=== PATIENT | male | born 1955 | race Caucasian/White ===

== ENCOUNTER 2024-04-13 12:57 | Observation (INO) | payer OTHER ==
[2024-04-13] VITALS (10 sets, daily range): BP systolic 115–136; BP diastolic 71–85
[~2024-04-13] VITALS: Ht 170.2 cm; Wt 104.2 kg
[2024-04-13] MEDS ORDERED: NS 1,000 ML IV SCH (14:00)
[2024-04-13 14:15] LABS: BASOPHILS ABSOLUTE AUTO 0.03 K/mm3 (0.00-0.23); BASOPHILS PERCENT AUTO 0 % (0-2); EOSINOPHILS PERCENT AUTO 0 % (0-6); Hematocrit 42.4 % (37.0-53.0); Hemoglobin 14.5 g/dL (13.5-17.5); IMMATURE GRAN ABSOLUTE AUTO 0.11 K/mm3 (0.00-0.10); IMMATURE GRAN PERCENT AUTO 1 % (0-1); LYMPHOCYTES ABSOLUTE AUTO 0.48 K/mm3 (0.84-5.20); LYMPHOCYTES PERCENT AUTO 3 % (21-46); MONOCYTES ABSOLUTE AUTO 1.43 K/mm3 (0.16-1.47); MONOCYTES PERCENT AUTO 8 % (4-13); Mean Corpuscular HGB 31.4 pg (26.0-34.0); Mean Corpuscular HGB Conc 34.2 g/dL (31.5-36.5); Mean Corpuscular Volume 92 fL (80-100); Mean Platelet Volume 9.7 fL (9.1-12.4); NEUTROPHILS ABSOLUTE AUTO 16.04 K/mm3 (1.96-9.15); NEUTROPHILS PERCENT AUTO 89 % (41-73); Platelet Count 198 K/mm3 (150-400); RDW Coefficient Variation 12.8 % (11.7-14.2); RDW Standard Deviation 43.2 fL (35.1-46.3); Red Blood Cell Count 4.62 M/mm3 (4.30-5.90); White Blood Cell Count 18.09 K/mm3 (4.00-11.30)
[2024-04-13 15:00] LABS: Albumin, Blood 3.3 g/dL (3.4-5.0); Albumin/Globulin Ratio 0.9 (0.8-1.8); Bilirubin, Total 1.6 mg/dL (0.1-1.0); Bun/Creatinine Ratio 9.2 (12.0-20.0); Calcium, Blood 9.2 mg/dL (8.5-10.1); Creatinine, Blood 0.98 mg/dL (0.60-1.20); Globulin, Blood 3.7 g/dL (2.2-4.0); Potassium, Blood 4.1 mmol/L (3.5-5.5)
[2024-04-13] MEDS ORDERED: Indocyanine Green 25 MG Vial IV SCH (15:10)
[2024-04-13] MEDS ORDERED: Lactated Ringer's 1,000 ML IV SCH (15:10)
[2024-04-13] MEDS ORDERED: FLU VACC TS2024-25(6MOS UP)/PF 45 MCG/0.5 ML SYRINGE IM PRN (15:45)
[2024-04-13] MEDS ORDERED: propofoL 20 ML IV ONE (15:59)
[2024-04-13] MEDS ORDERED: Sugammadex Sodium 200 MG/2ML SDV (100 MG/ML) ONE (15:59)
[2024-04-13] MEDS ORDERED: FentaNYL Citrate 50 MCG/ML 2 ML Injection ONE (15:59)
[2024-04-13] MEDS ORDERED: Rocuronium Bromide 10 MG/ML 5ML Injection IV ONE (16:00)
[2024-04-13] MEDS ORDERED: Lidocaine HCl 2% 20 ML MDV ONE (16:00)
[2024-04-13] MEDS ORDERED: Piperacillin/Tazobactam Sod 3.375 GM in NS 100 ML IV SCH (16:00)
[2024-04-13] MEDS ORDERED: Ondansetron HCl 2 MG / ML 2ML Vial ONE (16:00)
[2024-04-13] MEDS ORDERED: Dexamethasone Sod Phos 10 MG/ML 1ML VIAL ONE (16:00)
[2024-04-13] MEDS ORDERED: Bupivacaine 0.5% HCl 5 MG/ML 30MLVIAL ONE (17:08)
--- NOTE | 2024-04-13 17:26 | NUR ---
PT TO UNIT VIA GURN. ABLE TO WALK TO RESTROOM WITH STANDBY ASSIST. History, Chart, Medications and Allergies reviewed before start of procedure. Pre-Op teaching done. Pt verbalizes understanding. Patient confirms NPO status and agrees with scheduled surgery.
[2024-04-13] MEDS ORDERED: HYDROmorphone HCl/Pf 1MG SYR IV PRN (22:05)
[2024-04-13] MEDS ORDERED: Acetaminophen 325 MG TABLET PO PRN (22:05)
[2024-04-13] MEDS ORDERED: OxyCODONE HCL 5 MG TAB PO PRN (22:05)
[2024-04-13] MEDS ORDERED: Ondansetron HCl 2 MG / ML 2ML Vial IV PRN (22:10)
--- NOTE | 2024-04-13 23:19 | NUR ---
ARRIVAL TO UNIT PT ARRIVED TO RM 210 ON GURNEY FROM PACU. PT TRANSFERRED OVER TO BED WITH SLIDING SHEET. PT ON 3L NC SATTING ABOVE 92%, RR EVEN AND UNLABORED. PT ABLE TO RESPOND TO QUESTIONS APPROPRIATLEY. ABLE TO WIGGLE TOES AND DENIES N/T. PT HAS X4 LAP SITES TO ABD, CLOSED WITH WG, C/D/I. VSS. CALL LIGHT GIVEN TO PT AND EDUCATED ON HOW TO USE IT. NO OTHER CONCERNS AT THIS TIME.
[2024-04-14 00:04] VITALS: BP 126/78
[2024-04-14 01:25] VITALS: BP 127/83
--- NOTE | 2024-04-14 04:28 | NUR ---
SHIFT SUMMARY PDO 1 LAP MIGUEL PT RESTED T/O SHIFT. DENIES ANY PAIN. TOLERATING REGUALR DIET. PT HAS VOIDED, BUT HAS NOT BEEN OOB. X4 LAP SITES CLOSED WITH WG ARE C/D/I. VSS. PT REMAINS ON 3L NC, CAN ATTEMPT TO WEAN OFF. NO OTHER CONCERNS AT THIS TIME, CALL LIGHT WITHIN REACH
[2024-04-14 04:35] VITALS: BP 122/77
[2024-04-14 04:51] LABS: Hematocrit 39.4 % (37.0-53.0); Hemoglobin 13.2 g/dL (13.5-17.5); Mean Corpuscular HGB 30.8 pg (26.0-34.0); Mean Corpuscular HGB Conc 33.5 g/dL (31.5-36.5); Mean Corpuscular Volume 92 fL (80-100); Platelet Count 189 K/mm3 (150-400); RDW Coefficient Variation 12.9 % (11.7-14.2); RDW Standard Deviation 43.3 fL (35.1-46.3); Red Blood Cell Count 4.29 M/mm3 (4.30-5.90); White Blood Cell Count 16.34 K/mm3 (4.00-11.30)
[2024-04-14 05:06] LABS: Albumin, Blood 2.8 g/dL (3.4-5.0); Albumin/Globulin Ratio 0.7 (0.8-1.8); Bilirubin, Total 0.9 mg/dL (0.1-1.0); Bun/Creatinine Ratio 18.3 (12.0-20.0); Calcium, Blood 8.5 mg/dL (8.5-10.1); Creatinine, Blood 1.15 mg/dL (0.60-1.20); Globulin, Blood 3.8 g/dL (2.2-4.0); Potassium, Blood 4.2 mmol/L (3.5-5.5); Total Protein, Blood 6.6 g/dL (6.4-8.2)
[2024-04-14] MEDS ORDERED: Insulin Regular 100 UNIT/ML 10ML Vial SC SCH (07:30)
[2024-04-14 07:33] VITALS: BP 136/75
--- NOTE | 2024-04-14 10:53 | NUR ---
[facility] PT REPORTS USING [facility] FOR HIS PHARMACY, HE IS ABLE TO TELL THIS RN SOME OF HIS MEDICATIONS BUT NOT WHAT THE DOSES ARE. HE REPORTS TAKING METFORMIN BID PLAVIX EMPAGLIFLOZIN VITAMIN B VITAMIN D SPECIFIC DOSES UNKNOWN, [facility] IS CLOSED AND UNABLE TO CONFIRM SPECIFIC DOSES.
[2024-04-14] MEDS ORDERED: CLOP75 PO (11:37)
[2024-04-14] MEDS ORDERED: METF500C PO (11:37)
[2024-04-14] MEDS ORDERED: JARDIANCE25 MG PO (11:37)
[2024-04-14] MEDS ORDERED: THERA-D2000 UNIT PO (11:38)
[2024-04-14] MEDS ORDERED: Crestor40 MG PO (11:38)
--- NOTE | 2024-04-14 12:49 | NUR ---
DISCHARGE SUMMARY POD1 LAP MIGUEL, A/OX4, VSS, TOLERATING PO, DENIES PAIN, INDEPENDENT IN THE ROOM, VOIDING INDEPENDENTLY, LAP SITES C/D/I. DISCUSSED HOME MEDS WITH GEN SURGERY WHO GAVE VERBAL ORDER TO RESUME ALL HOME MEDS. DISCUSSED DISCHARGE INSTRUCTIONS WITH HIM INCLUDING HOME CARE, MEDICATIONS, AND FOLLOW UP INFORMATION. NO QUESTIONS AT THIS TIME, ESCORTED OTU VIA WC.
== END 2024-04-14 12:32 | disposition home or self-care (01) ==
LOC: ER 12:57 → SURS 12:58 → UNDODEPER 16:00 → ER 16:00 → SURS 16:11
PROVIDERS: Emergency Medicine; Surgery; ADMIT Internal Medicine
PROC: 0FT44ZZ Resection of Gallbladder, Percutaneous Endoscopic Approach (ICD-10-PCS; principal; 2024-04-13 17:00)
PROC: 8E0W4CZ Robotic Assisted Procedure of Trunk Region, Percutaneous Endoscopic Approach (ICD-10-PCS; principal; 2024-04-13 17:00)
DX: K80.12 Calculus of gallbladder with acute and chronic cholecystitis without obstruction (principal); E11.9 Type 2 diabetes mellitus without complications; E78.5 Hyperlipidemia, unspecified; Z87.891 Personal history of nicotine dependence; Z86.73 Personal history of transient ischemic attack (TIA), and cerebral infarction without residual deficits
CPT/HCPCS: 36415; 80053; 82947; 83690; 85025; 85027; 87040; 88304; 93005; 93010; 99285-25; J1100; J1815; J2405; J2543; J2704; J3010; J7030